=== PATIENT | female | born 1935 ===

== ENCOUNTER 2021-01-29 06:34 | Day surgery (SDC) | payer OTHER ==
[~2021-01-29 06:34] MED LIST: ARICEPT; ATORVASTATIN CA10 MG; COZAAR25 MG; LEVO-T75 MCG; MEMANTINE HCL10 MG; XARELTO20 M1
== END 2021-01-29 16:45 | disposition home or self-care (01) ==
LOC: CIR.AMB 06:34
PROVIDERS: ATTEND Otolaryngology Otology & Neurotology
DX: H71.02 Cholesteatoma of attic, left ear (principal); Z20.822 Contact with and (suspected) exposure to COVID-19